=== PATIENT | male | born 2000 | race Caucasian/White ===

== ENCOUNTER 2025-01-16 12:52 | Emergency (ER) | payer BC, SELFPAY ==
[2025-01-16 13:17] VITALS: BP 127/65; PULSE 110; RESP 18; TEMP 36.8; O2SAT 98; BMI 37.3
[2025-01-16] MEDS: Lidocaine HCl Viscous 2 % 15 ML SOLUTION MUCOUS MEM (13:27)
--- NOTE | 2025-01-16 13:37 | ED.GENADULT ---
HPI - General Adult General Chief complaint: General Medical Stated complaint: [place] - sore throat, trouble speaking Time Seen by Provider: 01/16/25 13:34 Source: patient Mode of arrival: ambulatory Limitations: no limitations History of Present Illness ED Provider: Donavan Pantoja HPI narrative: 24 yold male presents to the ED for sore throat and difficulty swalloowing. [facility] and diagnosed as mono. Patient has tested positive for mononucleosis. Patient was discharged with Motrin. Patient states just continuous stroke pain patient denies any vomiting or change in voice or drooling. Related Data Previous Rx's ?Medication ?Instructions ?Recorded dexamethasone 6 mg tablet 6 mg PO DAILY 4 days #4 tabs 01/16/25 Allergies Allergy/AdvReac Type Severity Reaction Status Date / Time No Known Allergies Allergy Verified 01/16/25 13:19 Review of Systems Review of Systems: Sore throat Yes all other systems are reviewed and are negative PMFSH Social History Social History Advance Directives: No Advance Directives Information Provided: Yes Do you have a plan to hurt others: No Plan Physical Exam ED Vital Signs: Vital Signs - 24 hr 01/16/25 13:17 01/16/25 13:51 Temperature 98.2 F 98.2 F Pulse Rate 110 H 110 H Respiratory Rate 18 18 Blood Pressure 127/65 127/65 Pulse Oximetry 98 98 Oxygen Delivery Method Room Air Room Air BMI result Body Mass Index 37.3 Const General: cooperative, healthy appearing, comfortable, no acute distress, well developed, alert, awake and Physically active Orientation/consciousness: patient oriented x3 HENMT Head: Yes normal to inspection, Yes No palpable skull fracture present, Yes normocephalic and Yes atraumatic Throat: Yes posterior oropharynx normal, Yes uvula midline and Yes abnormal tonsil (Swollen erythematous kissing, negative for signs of peritonsillar abscess) Eyes General: appearance normal, both eyes and all related structures Neck Neck: Yes normal visual inspection, Yes full ROM, Yes no lymphadenopathy, Yes no meningeal signs, Yes trachea midline, Yes supple, No anterior neck swelling and No tender Chest Chest palpation & inspection: normal inspection of the chest and normal palpation of entire chest wall Resp Effort & Inspection: normal respiratory effort and able to speak in complete sentences Auscultation: clear to auscultation bilaterally Cardio Jugular venous distension: no JVD Heart sounds: S1 normal heart sound present and S2 normal heart sound present GI Inspection: Yes normal to inspection Palpation (GI): Soft to palpation, not firm, nontender, no guarding and not rigid General: Yes no CVA tenderness Back/Spine/Pelvis Back: no CVA tenderness and No back tenderness Skin General skin exam: no rashes or lesions noted, elasticity normal and turgor normal Neuro General: patient oriented x3, gait normal, tone normal, moves all extremities, Normal light touch and pain sensation, no meningeal signs, no focal motor deficits, CN's II-XI intact bilaterally and normal sensation to monofilament Extrem General: Yes normal to inspection and Yes full ROM Psych Appearance: grossly normal, well kempt and not disheveled Medications Administered Discontinued Medications Generic Name Dose Route Start Last Admin Trade Name Michelq PRN Reason Stop Dose Admin Dexamethasone Sodium Phosphate 10 mg 01/16/25 13:21 01/16/25 13:27 Dexamethasone Sod Phosphate 10 Mg/Ml Vial IVPUSH 01/16/25 13:22 10 mg ONCE ONE Administration Lidocaine HCl 15 ml 01/16/25 13:21 01/16/25 13:27 Lidocaine Hcl Viscous 2 % 15 Ml Solution MUCOUS MEM 01/16/25 13:22 15 ml ONCE ONE Administration Medical Decision Making Medical Decision Making MDM Narrative: 24-year-old male recently tested positive for [facility] at [facility] presents to ED for difficulty swallowing with sore throat. History physical exam negative for signs of peritonsillar abscess. Physical exam Does shows bilateral tonsillar swelling and kissing. Patient given dexamethasone oral liquid and lidocaine viscous. Negative for change in voice chest pain or shortness of breath. Not suspecting retropharyngeal abscess, Eric's angina, peritonsillar abscess, or any other life-threatening etiology. Patient feeling better after meds and given dexamethasone prescription for releif. Patient informed to continue taking motrin prescribed by urgent care provider. Patient explained worrisome signs and informed to return to the ED immeidately. Differential Diagnosis Differential Diagnoses: The differential diagnosis associated with the presentation includes ([facility], strep, mono COVID) Admission/Observation Consideration of admission/observation: Escalation of care including admission/observation considered Independent Historian Clinical information obtained from an independent historian. History obtained from or confirmed by: Other (Patient is) Prescription Management I considered prescription management with: Pain Medication and Other (Steroid) Discharge Plan Discharge Clinical Impression: Mononucleosis Patient Disposition: Home, Self-Care Instructions: Mononucleosis (ED) Additional Instructions: Recommend follow-up with primary care provider. Return to the ED immediately for change in voice, drooling, inability to talk, chest pain, shortness of breath, fever, chills, inability to tolerate solid food/liquid, or any other concerning symptoms. [facility] Prescriptions: New dexamethasone 6 mg tablet 6 mg PO DAILY 4 Days Qty: 4 0RF Stand Alone Forms: Work/School Release Interventions: ED Discharge Assessment Last Done: 01/16/25 13:51 Discharge Date/Time: 01/16/25 13:52 Print Language: Nepali
[2025-01-16 13:51] VITALS: BP 127/65; PULSE 110; RESP 18; TEMP 36.8; O2SAT 98
== END 2025-01-16 13:52 | disposition home or self-care (01) ==
PROVIDERS: Emergency Provider Emergency Medicine
DX: B27.90 Infectious mononucleosis, unspecified without complication (principal)
CPT/HCPCS: 96374; 99282; 99284; J1100